=== PATIENT | male | born 1995 | race Caucasian/White ===

== ENCOUNTER 2021-10-14 16:48 | Emergency (ER) | payer OTHER ==
--- NOTE | 2021-10-14 16:52 | ERPHSYRPT ---
- History of Present Illness Time Seen by Provider: 10/14/21 16:52 Source: patient Exam Limitations: no limitations Physician History: This is a 26-year-old white male who has 2-day history of worsening left upper molar pain. There is a fracture present as well. He has not seen a dentist for this. Severity: mild (Moderate) ENT Location: dental Prearrival Treatment: over the counter meds Modifying Factors: Improves With: nothing Associated Symptoms: tooth pain Allergies/Adverse Reactions: Lyme Disease vaccine (recombinant O Allergy (Verified 10/14/21 17:01) Travel Risk - Coronavirus Screening Are you exhibiting any of the following symptoms?: No Close contact with a COVID-19 positive Pt in past 14-21 Days: No - Review of Systems Constitutional: No Symptoms Eyes: No Symptoms Ears, Nose, & Throat: Other (Dental pain) Respiratory: No Symptoms Cardiac: No Symptoms Abdominal/Gastrointestinal: No Symptoms Genitourinary Symptoms: No Symptoms Musculoskeletal: No Symptoms Skin: No Symptoms Neurological: No Symptoms Psychological: No Symptoms Endocrine: No Symptoms Hematologic/Lymphatic: No Symptoms Immunological/Allergic: No Symptoms All Other Systems: Reviewed and Negative - Past Medical History Pertinent Past Medical History: No - Past Surgical History Past Surgical History: No - Nursing Vital Signs Nursing Vital Signs: Initial Vital Signs Temperature 98.4 F 10/14/21 16:54 Pulse Rate 90 10/14/21 16:54 Blood Pressure 147/95 10/14/21 16:54 O2 Sat by Pulse Oximetry 100 10/14/21 16:54 Pain Scale Pain Intensity 8 - Physical Exam General Appearance: no apparent distress, alert Eye Exam: bilateral eye: normal inspection, PERRL, EOMI Ear Exam: bilateral ear: auricle normal Nasal Exam: normal inspection Throat Exam: pharynx normal, dental tenderness (Appears to be pain and fracture at tooth #16) Neck Exam: normal inspection, non-tender, supple, full range of motion, trachea midline Cardiovascular/Respiratory Exam: chest non-tender, no respiratory distress Abdominal Exam: non-tender Neurologic Exam: alert, oriented x 3, cooperative, 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 as tested, normal mood/affect, nml cerebellar function, nml station & gait, sensation nml Skin Exam: normal color, warm, dry SpO2 Interpretation: normal O2 Delivery: Room Air - Course Nursing assessment & vital signs reviewed: Yes - Progress Progress: unchanged Counseled pt/family regarding: diagnosis, need for follow-up - Departure Departure Disposition: Home Clinical Impression: Dental caries, Pain due to dental caries Condition: Stable Critical Care Time: No Referrals: SCREEN,DRUG [Primary Care Provider] - Follow up/PCP as directed Additional Instructions: Use Tylenol and ibuprofen for pain control. Call your dentist for definitive care. Take your antibiotics as prescribed. Prescriptions: Amoxicillin 500 mg Cap [Amoxil 500 mg] 500 mg PO TID #30 cap
[2021-10-14] MEDS ORDERED: AMOXIL 500 MG PO ONE (17:06)
[2021-10-14] MEDS ORDERED: AMOXIL 500 MG ONE (17:14)
[2021-10-14 17:21] VITALS: BP 136/82; PULSE 72; O2SAT 99
== END 2021-10-14 17:21 | disposition home or self-care (01) ==
LOC: ED 16:48
DX: K02.9 Dental caries, unspecified (principal)
CPT/HCPCS: 99283; A9270-GY

== ENCOUNTER 2023-03-13 16:06 | Emergency (ER) | payer OTHER ==
[2023-03-13 16:59] VITALS: O2SAT 98
[2023-03-13] MEDS ORDERED: TORAdol 30 mg Injection IM ONE (18:07)
[2023-03-13 18:08] VITALS: BP 152/81; PULSE 76
[2023-03-13] MEDS ORDERED: Augmentin 875-125 Tablet PO ONE (18:08)
[2023-03-13] MEDS ORDERED: Augmentin 875-125 Tablet ONE (18:09)
[2023-03-13] MEDS ORDERED: TORAdol 30 mg Injection ONE (18:09)
--- NOTE | 2023-03-13 18:14 | ERPHSYRPT ---
- History of Present Illness Time Seen by Provider: 03/13/23 18:11 Source: patient Exam Limitations: no limitations Patient Subjective Stated Complaint: Pt states "I went to [facility] yesterday with groin and tooth pain and I found out I have a hernia but I think they i gnored the tooth pain. I might just need some antibiotics." Triage Nursing Assessment: PT presented alert and oriented X 3, skin pwd. Pt ambulates with an upright steady gait, able to speak in clear full sentences. PT has tenderness noted to left lower jaw Physician History: Patient is a 28-year-old male presents to our ED for evaluation of dental pain. Dental pain has been going on for approximately 2 to 3 days. Pain is constant. Pain primarily localized to the left lower jaw. No trauma. No fever. No nausea vomiting or diaphoresis. No headache. Pain is progressively worsening. Patient currently has an appointment scheduled with his dentist. However due to the level of pain patient is seeking care. Significant other at bedside. They voiced no other complaints or concerns at this time. Portions of this note were created with voice recognition technology. There may be grammatical, spelling, punctuation or sound alike errors Timing/Duration: day(s) (2 to 3 days ago) Severity: moderate Modifying Factors: Improves With: nothing (Mastication reproduces pain) Associated Symptoms: denies symptoms Allergies/Adverse Reactions: Lyme Disease vaccine (recombinant O Allergy (Verified 10/14/21 17:01) Hx Tetanus, Diphtheria Vaccination/Date Given: No Hx Influenza Vaccination/Date Given: No Hx Pneumococcal Vaccination/Date Given: No Immunizations Up to Date: Yes Travel Risk - International Travel Have you traveled outside of the country in past 3 weeks: No - Coronavirus Screening Are you exhibiting any of the following symptoms?: No - Vaccine Status Have you recieved a Covid-19 vaccination: No - Review of Systems Constitutional: No Symptoms, No Fever, No Chills Eyes: No Symptoms Ears, Nose, & Throat: No Symptoms Respiratory: No Symptoms, No Cough, No Dyspnea Cardiac: No Symptoms, No Chest Pain, No Edema, No Syncope Abdominal/Gastrointestinal: No Symptoms, No Abdominal Pain, No Nausea, No Vomiting, No Diarrhea Genitourinary Symptoms: No Symptoms, No Dysuria Musculoskeletal: No Symptoms, No Back Pain, No Neck Pain Skin: No Symptoms, No Rash Neurological: No Symptoms, No Dizziness, No Focal Weakness, No Sensory Changes Psychological: No Symptoms Endocrine: No Symptoms Hematologic/Lymphatic: No Symptoms Immunological/Allergic: No Symptoms All Other Systems: Reviewed and Negative - Past Medical History Pertinent Past Medical History: No - Past Surgical History Past Surgical History: Yes Gastrointestinal: Appendectomy, Hernia Repair Other Surgical History: dental - Social History Smoking Status: Former smoker Exposure to second hand smoke: Yes Drug Use: marijuana Patient Lives Alone: No - Nursing Vital Signs Nursing Vital Signs: Initial Vital Signs Temperature 98.1 F 03/13/23 16:53 Pulse Rate 80 03/13/23 16:53 Respiratory Rate 20 03/13/23 16:53 Blood Pressure 155/89 03/13/23 16:53 O2 Sat by Pulse Oximetry 98 03/13/23 16:53 Pain Scale Pain Intensity 6 - Physical Exam General Appearance: no apparent distress, alert Eye Exam: PERRL/EOMI, eyes nml inspection, other (Tooth #17 is carious. Tooth #18 as well however tooth 17 is symptomatic. No intraoral lesions. No sublingual masses. No Karl's. No cervical lymphadenopathy. Patent airway. No difficulty swallowing.) Ears, Nose, Throat Exam: normal ENT inspection, TMs normal, pharynx normal, moist mucous membranes Neck Exam: normal inspection, non-tender, supple, full range of motion Respiratory Exam: normal breath sounds, lungs clear, No respiratory distress Cardiovascular Exam: regular rate/rhythm, normal heart sounds, normal peripheral pulses Gastrointestinal/Abdomen Exam: soft, normal bowel sounds, No tenderness, No mass Back Exam: normal inspection, normal range of motion, No CVA tenderness, No vertebral tenderness Extremity Exam: normal inspection, normal range of motion, pelvis stable Neurologic Exam: alert, oriented x 3, cooperative, normal mood/affect, nml cerebellar function, nml station & gait, sensation nml, No motor deficits Skin Exam: normal color, warm, dry, No rash Lymphatic Exam: No adenopathy SpO2 Interpretation: normal SpO2: 98 O2 Delivery: Room Air - Course Nursing assessment & vital signs reviewed: Yes Ordered Tests: Medication Summary Discontinued Medications Generic Name Dose Route Start Last Admin Trade Name Freq PRN Reason Stop Dose Admin Ketorolac Tromethamine 30 mg 03/13/23 18:07 Ketorolac Tromethamine 30 Mg/Ml Inj IM 03/13/23 18:08 STAT ONE - Progress Progress: improved Progress Note: Patient is a 28-year-old male presents to our ED for evaluation of dental pain. Physical exam reveals a carious tooth that position #17 and 18. However position 17 for symptomatic side. No other intraoral pathology observed. Patient received a dose of Toradol and oral dose of Augmentin in our ED. A prescription for the same was forwarded to patient's pharmacy. Patient current ly has an appointment scheduled with a dentist. Significant other at bedside. They voiced no other complaints or concerns at this time. Patient agrees to follow-up as discussed. Complexity of problem addressed is low acute uncomplicated Complex of data reviewed and analyzed is none. No specialized testing ordered. Diagnosis made based on history and physical exam. Risk of complication and or risk morbidity/mortality of patient management is moderate. a prescription for Republic and a antibiotic/Augmentin was forwarded to patient's pharmacy We will discharge home. Patient will follow-up with his dentist next week as planned. Vital stable. Time to discharge patient was approximately 10 to 15 minutes. Plan of care established via shared decision making. Patient voiced no other complaints or concerns. Portions of this note were created with voice recognition technology. There may be grammatical, spelling, punctuation or sound alike errors 03/13/23 18:19 Counseled pt/family regarding: diagnosis, need for follow-up - Departure Departure Disposition: Home Clinical Impression: Carious teeth, Pain, dental, Dental abscess Condition: Stable Critical Care Time: No Referrals: DOCTOR,NO FAMILY [Primary Care Provider] - Follow up/PCP as directed DANTE ANN MD [ACTIVE STAFF] - Follow up/PCP as directed Additional Instructions: Discharge/Care Plan YENYMellissaLENCHO JONATHON was seen on 03/13/23 in the Emergency Room. The patient was counseled regarding Diagnosis,Lab results, Imaging studies, need for follow up and when to return to the Emergency Room. Prescriptions given: Discharge Note I have spoken with the patient and/or caregivers. I have explained the patient's condition, diagnosis and treatment plan based on the information available to me at this time. I have answered the patient's and/or caregiver's questions and addressed any concerns. The patient and/or caregivers have as good understanding of the patient's diagnosis, condition and treatment plan as can be expected at this point. The vital signs have been stable. The patient's condition is stable and appropriate for discharge from the emergency department. The patient will pursue further outpatient evaluation with the primary care physician or other designated or consulting physician as outlined in the discharge instructions. The patient and/or caregivers are agreeable to this plan of care and follow-up instructions have been explained in detail. The patient and/or caregivers have received these instruction. The patient/and or caregivers are aware that any significant change in condition or worsening of symptoms should prompt an immediate return to this or the closest emergency department or call 911. Prescriptions: Amox Tr/Potass Clav. 875 mg [Augmentin 875-125 Tablet] 875 mg PO BID 7 Days #14 tablet Ketorolac Trometh 10 mg Tab [TORAdol 10 MG TABLET] 10 mg PO TID 5 Days #15 tablet
== END 2023-03-13 18:34 | disposition home or self-care (01) ==
LOC: ED 16:06
DX: K04.7 Periapical abscess without sinus (principal); K02.9 Dental caries, unspecified; K08.89 Other specified disorders of teeth and supporting structures; Z28.310 Unvaccinated for COVID-19
CPT/HCPCS: 96372; 99283; J1885; A9270-GY

== ENCOUNTER 2023-08-28 14:12 | Emergency (ER) | payer OTHER ==
[2023-08-28 14:36] VITALS: TEMP 99.4
[2023-08-28] MEDS ORDERED: TORAdol 30 mg Injection IM ONE (15:29)
[2023-08-28] MEDS ORDERED: DECADRON 10MG INJ. IM ONE (15:30)
[2023-08-28] MEDS ORDERED: DECADRON 10MG INJ. ONE (15:57)
[2023-08-28] MEDS ORDERED: TORAdol 30 mg Injection ONE (15:57)
--- NOTE | 2023-08-28 16:22 | XRAY ---
Indication: Pain. Multiple contiguous axial images obtained through the thoracic spine. Sagittal and coronal reformatted images obtained. Comparison: None Superior endplate T9 demonstrates minimal concave deformity appearing sclerotic favoring remote fracture. No acute fracture, suspicious bony lesions, or spinal canal stenosis. Sagittal and coronal reformatted images demonstrates normal alignment with vertebral body heights/disc spaces maintained. Visualized noncontrasted soft tissues are unremarkable. Impression: Minimal remote T9 endplate fracture. Remaining CT thoracic spine is normal.
[2023-08-28 16:31] VITALS: BP 154/99; PULSE 75; O2SAT 99
--- NOTE | 2023-08-28 16:52 | ERPHSYRPT ---
- History of Present Illness Time Seen by Provider: 08/28/23 14:30 Source: patient Exam Limitations: no limitations Patient Subjective Stated Complaint: Pt states that he was on a ladder yesterday using a hammer to try and pull something out and he tweaked his upper back b etween his shoulder blades Triage Nursing Assessment: Pt brought to the ER by his , hypertensive, rates pain as 10/10, reports that the pain woke him up several times last night, hurts to turn his neck, pulses normal, skin n/w/d, pain with light palpatation to the upper medial back just below the neck, pt denies any injuries or trauma, pt appears to be in severe pain Physician History: Patient 28-year-old male presents to our ED with pain between his scapula. Patient states he "tweaked" his back while working with a hammer. Patient state s he did not immediately feel pain however pain woke him from his sleep. Pain described as an ache that is localized. Pain worse with movement and palpation. Pain improved with rest. No associated chest pain or shortness of breath. No nausea vomiting or diaphoresis. Patient is otherwise healthy. at bedside. They voiced no other complaints or concerns at this time. Portions of this note were created with voice recognition technology. There may be grammatical, spelling, punctuation or sound alike errors Timing/Duration: yesterday Method of Injury: twisted Quality: dull Back Pain Location: T-spine Severity of Pain-Max: moderate (No radiation) Severity of Pain-Current: mild Modifying Factors: Improves With: movement Associated Symptoms: denies symptoms Previous symptoms: no prior history Allergies/Adverse Reactions: Lyme Disease vaccine (recombinant O Allergy (Verified 08/28/23 14:36) Hx Tetanus, Diphtheria Vaccination/Date Given: No Hx Influenza Vaccination/Date Given: No Hx Pneumococcal Vaccination/Date Given: No Travel Risk - International Travel Have you traveled outside of the country in past 3 weeks: No - Coronavirus Screening Are you exhibiting any of the following symptoms?: No - Vaccine Status Have you recieved a Covid-19 vaccination: No - Review of Systems Constitutional: No Symptoms, No Fever, No Chills Eyes: No Symptoms Ears, Nose, & Throat: No Symptoms Respiratory: No Symptoms, No Cough, No Dyspnea Cardiac: No Symptoms, No Chest Pain, No Edema, No Syncope Abdominal/Gastrointestinal: No Symptoms, No Abdominal Pain, No Nausea, No Vomiting, No Diarrhea Genitourinary Symptoms: No Symptoms, No Dysuria Musculoskeletal: No Symptoms, No Back Pain, No Neck Pain Skin: No Symptoms, No Rash Neurological: No Symptoms, No Dizziness, No Focal Weakness, No Sensory Changes Psychological: No Symptoms Endocrine: No Symptoms Hematologic/Lymphatic: No Symptoms All Other Systems: Reviewed and Negative - Past Medical History Pertinent Past Medical History: No - Past Surgical History Past Surgical History: Yes Gastrointestinal: Appendectomy, Hernia Repair Other Surgical History: dental - Social History Smoking Status: Former smoker How long have you smoked: vapes Exposure to second hand smoke: No Drug Use: marijuana Patient Lives Alone: No - Nursing Vital Signs Nursing Vital Signs: Initial Vital Signs Temperature 99.4 F 08/28/23 14:26 Pulse Rate 78 08/28/23 14:26 Blood Pressure 153/105 08/28/23 14:26 O2 Sat by Pulse Oximetry 99 08/28/23 14:26 Pain Scale Pain Intensity [Upper Medial 10 Back] Pain Intensity 0 - Physical Exam General Appearance: no apparent distress, alert Eye Exam: PERRL/EOMI, eyes nml inspection Neck Exam: normal inspection, non-tender, supple, full range of motion, No meningismus, No midline tenderness Respiratory Exam: normal breath sounds, lungs clear, airway intact, No respiratory distress Cardiovascular Exam: regular rate/rhythm, normal heart sounds, normal peripheral pulses Gastrointestinal Exam: soft, No tenderness, No mass Back Exam: other (Tenderness to palpation at the rhomboids near T4-5.) Extremity Exam: normal inspection, normal range of motion, No calf tenderness, No pedal edema Neurologic Exam: alert, oriented x 3, cooperative, 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 SpO2: 99 O2 Delivery: Room Air - Course Nursing assessment & vital signs reviewed: Yes - CT Exams Thoracic Spine CT Interpretation: Tele-radiologist Report (Remote T9 endplate fracture otherwise no acute fractures observed.) Ordered Tests: Active Orders 24 hr Category Date Time Status THORACIC SPINE W/O CONTRAST [CT] Stat Exams 08/28/23 15:29 Completed UA W/RFX UR CULTURE Stat Lab 08/28/23 15:24 Ordered Medication Summary Discontinued Medications Generic Name Dose Route Start Last Admin Trade Name Sharif PRN Reason Stop Dose Admin Dexamethasone Sodium Phosphate 6 mg 08/28/23 15:30 08/28/23 16:16 Dexamethasone Sod Phosphate 10 Mg/Ml IM 08/28/23 15:31 6 mg STAT ONE Administration Dexamethasone Sodium Phosphate Confirm 08/28/23 15:57 Dexamethasone Sod Phosphate 10 Mg/Ml Administered 08/28/23 15:58 Dose 10 mg .ROUTE .STK-MED ONE Ketorolac Tromethamine 30 mg 08/28/23 15:29 08/28/23 16:10 Ketorolac Tromethamine 30 Mg/Ml Inj IM 08/28/23 15:30 30 mg STAT ONE Administration Ketorolac Tromethamine Confirm 08/28/23 15:57 Ketorolac Tromethamine 30 Mg/Ml Inj Administered 08/28/23 15:58 Dose 30 mg .ROUTE .STK-MED ONE - Progress Progress: improved Progress Note: Patient is a 28-year-old male presents to our emergency department for evaluation of pain between the scapula after "tweaking" his back while working with a hammer. CT scan reveals a remote T9 endplate fracture. However this is not within the location of patient's current symptomology. The CAT scan was otherwise negative. Patient received Toradol and Decadron for pain control, patient also received a prescription for 20 mg prednisone and Toradol. Patient agrees to follow-up with his primary care doctor within 48 hours for reevaluation. He declined a work note Portions of this note were created with voice recognition technology. There may be grammatical, spelling, punctuation or sound alike errors 08/28/23 16:58 Complexity problem addressed is moderate acute complicated No critical care time Complex of data reviewed and analyzed is moderate. Test ordered test reviewed. Results analyzed and correlated clinically. Risk complication and or risk morbidity/mortality of patient management is moderate. Patient received a prescription for prednisone and Toradol. Vital stable. Pain improved but not resolved. Time spent to discharge patient is approximately 15 minutes. Plan of care established for shared decision making. No social determinants of health present impede follow-up. Patient and who is at the bedside voiced no other complaints or concerns at this time. 08/28/23 17:00 Counseled pt/family regarding: diagnosis, need for follow-up, rad results - Departure Departure Disposition: Home Clinical Impression: Strain of thoracic paraspinal muscles excluding T1 and T2 levels Condition: Stable Critical Care Time: No Referrals: DOCTOR,NO FAMILY [Primary Care Provider] - Follow up/PCP as directed DANTE ANN MD [ACTIVE STAFF] - Follow up/PCP as directed Additional Instructions: Discharge/Care Plan LENCHO RENTERIA was seen on 08/28/23 in the Emergency Room. The patient was counseled regarding Diagnosis,Lab results, Imaging studies, need for follow up a nd when to return to the Emergency Room. Prescriptions given: Discharge Note I have spoken with the patient and/or caregivers. I have explained the patient's condition, diagnosis and treatment plan based on the information available to me at this time. I have answered the patient's and/or caregiver's questions and addressed any concerns. The patient and/or caregivers have as good understanding of the patient's diagnosis, condition and treatment plan as can be expected at this point. The vital signs have been stable. The patient's condition is stable and appropriate for discharge from the emergency department. The patient will pursue further outpatient evaluation with the primary care physician or other designated or consulting physician as outlined in the discharge instructions. The patient and/or caregivers are agreeable to this plan of care and follow-up instructions have been explained in detail. The patient and/or caregivers have received these instruction. The patient/and or caregivers are aware that any significant change in condition or worsening of symptoms should prompt an immediate return to this or the closest emergency department or call 911. Prescriptions: Prednisone 20 mg [Deltasone 20 mg] 20 mg PO DAILY 3 Days #3 tablet Ketorolac Trometh 10 mg Tab [TORAdol 10 MG TABLET] 10 mg PO TID 5 Days #15 tablet
== END 2023-08-28 17:04 | disposition home or self-care (01) ==
LOC: ED 14:12
DX: S29.012A Strain of muscle and tendon of back wall of thorax, initial encounter (principal); X50.0XXA Overexertion from strenuous movement or load, initial encounter; Z79.52 Long term (current) use of systemic steroids; Z28.310 Unvaccinated for COVID-19
CPT/HCPCS: 72128; 96372; 99283; J1100; J1885